=== PATIENT | female | born 1970 | race Caucasian/White ===

== ENCOUNTER 2018-03-28 14:01 | Emergency (ER) | END 2018-03-29 00:42 | disposition home or self-care (01) ==

== ENCOUNTER 2018-04-05 11:19 | Emergency (ER) | END 2018-04-05 13:37 | disposition home or self-care (01) ==

== ENCOUNTER 2018-04-10 17:31 | Emergency (ER) | END 2018-04-10 21:00 | disposition home or self-care (01) ==

== ENCOUNTER 2018-04-26 16:51 | Emergency (ER) | END 2018-04-26 19:53 | disposition home or self-care (01) ==

== ENCOUNTER 2018-05-15 06:08 | Emergency (ER) | END 2018-05-15 11:18 | disposition home or self-care (01) ==

== ENCOUNTER 2018-05-26 19:25 | Emergency (ER) | END 2018-05-27 00:15 | disposition home or self-care (01) ==

== ENCOUNTER 2018-06-01 13:09 | Emergency (ER) | END 2018-06-01 22:05 | disposition home or self-care (01) ==

== ENCOUNTER 2018-08-13 17:49 | Emergency (ER) | payer SELFPAY ==
[~2018-08-13] VITALS: Ht 165.1 cm; Wt 101.5 kg
[~2018-08-13 17:49] MED LIST: CEPH-443 PO; CIPR500T4 PO; CLON-379 PO; HYDR-4011 PO; NAPR-688 PO; NAPR-985 PO; NITR-58 PO; ONDA4TAB14 PO; TRAM50TA2 PO
[2018-08-13 17:55] VITALS: Ht 165.1 cm; Wt 101.5 kg
[2018-08-13] MEDS ORDERED: ONDANSETRON (ODT) 4 MG TAB ODT STA (20:54)
[2018-08-13] MEDS ORDERED: ONDA4TAB8 PO (20:56)
[2018-08-13 21:00] VITALS: BP 180/118; PULSE 88; RESP 18
[2018-08-13] MEDS ORDERED: HYDROCODONE/APAP (5/325) TAB PO ONE (21:00)
--- NOTE | 2018-08-13 21:09 | ERD ---
ER Documentation Chief Complaint Chief Complaint pelvic/ap and back pain , n/v. sent from clinic for further evaluation HPI Patient is a 47-year-old female with a history of chronic pain who presents with abdominal pain. She reports lower abdominal pain and nausea. She was sent by her psychiatrist for a urine test which showed blood and protein in the urine. There was a note requesting a full workup with laboratory studies and urine sample. The patient has a history of chronic abdominal pain however and says this feels like her previous abdominal pain. It is diffuse in nature and is on both sides of her abdomen. Upon review of old medical records she has had 8 visits to our emergency department since March 28, 2018. Review of the emergency department information exchange system shows visits to 7 different emergency departments over the past 1 year and she does have a care plan for her chronic pain. She is going to follow-up with a Dr. Gilmore as a primary doctor. ROS All systems reviewed and are negative except as per history of present illness. Medications Home Meds Active Scripts Ondansetron Hcl* (Zofran*) 4 Mg Tablet, 4 MG PO Q6H for NAUSEA AND/OR VOMITING, #30 TAB Prov:ALON BASILIO MD 08/13/18 Ondansetron (Ondansetron Odt) 4 Mg Tab.rapdis, 4 MG PO Q6H PRN for NAUSEA AND/OR VOMITING, #10 TAB Prov:JOSE CORNELL MD 06/01/18 Tramadol HCl (Tramadol HCl) 50 Mg Tablet, 50 MG PO Q6 PRN for PAIN, #15 TAB Prov:JOSE CORNELL MD 06/01/18 Nitrofurantoin Monohyd Macrocr* (Macrobid*) 100 Mg Capsr, 100 MG PO BID for 14 Days, CAP Prov:JOSE CORNELL MD 06/01/18 Tramadol HCl (Tramadol HCl) 50 Mg Tablet, 50 MG PO Q6 PRN for PAIN, #15 TAB Prov:JOSE CORNELL MD 06/01/18 Ondansetron (Ondansetron Odt) 4 Mg Tab.rapdis, 4 MG PO Q6H PRN for NAUSEA AND/OR VOMITING, #10 TAB Prov:JOSE CORNELL MD 06/01/18 Nitrofurantoin Monohyd Macrocr* (Macrobid*) 100 Mg Capsr, 100 MG PO BID for 14 Days, CAP Prov:JOSE CORNELL MD 06/01/18 Naproxen* (Naprosyn*) 500 Mg Tablet, 500 MG PO BID PRN for PAIN AND/OR IN FLAMMATION, #30 TAB Prov:ANGEL POTTER MD 05/26/18 Ciprofloxacin Hcl* (Ciprofloxacin Hcl*) 500 Mg Tablet, 500 MG PO BID for 7 Days, TAB Prov:ANGEL POTTER MD 05/26/18 Cephalexin* (Keflex*) 500 Mg Capsule, 500 MG PO QID for 5 Days, CAP Prov:ANGEL DYE MD 05/15/18 Ondansetron (Ondansetron Odt) 4 Mg Tab.rapdis, 4 MG PO Q6H PRN for NAUSEA AND/OR VOMITING, #10 TAB Prov:ANGEL DYE MD 05/15/18 Hydrocodone/Acetaminophen ([place] 5-325 Tablet) 1 Each Tablet, 1 TAB PO Q6H PRN for PAIN, #20 TAB Prov:ANGEL DYE MD 05/15/18 Naproxen* (Naproxen*) 500 Mg Tablet, 500 MG PO BID PRN for PAIN, #20 TAB Prov:JEFF PATIÑO DO 04/26/18 Hydrocodone/Acetaminophen ([place] 5-325 Tablet) 1 Each Tablet, 1 EACH PO Q6 PRN for SEVERE PAIN LEVEL 7-10, #20 TAB Prov:JEFF PATIÑO DO 04/26/18 Reported Medications Clonidine Hcl* (Clonidine Hcl*) 0.1 Mg Tab, 0.1 MG PO NEEDED, TAB 04/26/18 Allergies Allergies: Coded Allergies: pseudoephedrine (Verified Allergy, Unknown, 04/26/18) PMhx/Soc Positive for chronic abdominal pain History of Surgery: No Anesthesia Reaction: No Hx Neurological Disorder: No Hx Respiratory Disorders: No Hx Cardiac Disorders: No Hx Psychiatric Problems: No Hx Miscellaneous Medical Probl: No Hx Alcohol Use: No Hx Substance Use: No Hx Tobacco Use: No FmHx Family History: diabetes Physical Exam Vitals Vital Signs Date Temp Pulse Resp B/P (MAP) Pulse Ox O2 O2 Flow FiO2 Time Delivery Rate 08/13/18 97.2 100 18 180/118 100 17:55 (138) Physical Exam Const: Mild distress Head: Atraumatic Eyes: Normal Conjunctiva ENT: Normal External Ears, Nose and Mouth. Neck: Full range of motion. No meningismus. Resp: Clear to auscultation bilaterally Cardio: Regular rate and rhythm, no murmurs Abd: Diffuse tenderness to palpation without rebound or guarding Skin: No petechiae or rashes Back: No midline or flank tenderness Ext: No cyanosis, or edema Neur: Awake and alert Psych: Normal Mood and Affect Results 24 hrs Laboratory Tests Test 08/13/18 20:58 08/13/18 20:59 Bedside Urine pH (LAB) 7.0 Bedside Urine Protein (LAB) Negative Bedside Urine Glucose (UA) Negative Bedside Urine Ketones (LAB) Negative Bedside Urine Blood Trace-intact Bedside Urine Nitrite (LAB) Negative Bedside Urine Leukocyte Esterase (L Trace POC Beta HCG, Qualitative NEGATIVE Current Medications Medications Dose Sig/Tanya Start Time Status Last (Trade) Ordered Route PRN Stop Time Admin Dose Reason Admin 1 tab ONCE ONCE 08/13/18 DC Acetaminophen PO 21:00 08/13/18 / 21:01 Hydrocodone Bitart ([place] (5/325)) Ondansetron 4 mg ONCE STAT 08/13/18 DC HCl (Zofran ODT 20:54 08/13/18 Odt) 20:55 Procedures/MDM Urine dip is negative for infection or protein, there is trace blood. Urine test is negative. Patient is a 47-year-old female who presents with acute on chronic abdominal pain. I do not believe that she requires a workup at this time. I believe this is consistent with her chronic pain process. She will be given 1 [place] and 1 Zofran in the emergency department as this is her chronic pain plan. She is already had her appendix and gallbladder removed and I doubt appendicitis or cholecystitis. Vital signs are normal and I doubt sepsis. She can follow-up with her primary doctor within 1 week. She can return for any worsening symptoms. She will be given a prescription for Zofran but no narcotic medicines. Departure Diagnosis: Primary Impression: Chronic pain Chronic pain type: chronic pain syndrome Qualified Codes: G89.4 - Chronic pain syndrome Additional Impression: Abdominal pain Abdominal location: generalized Qualified Codes: R10.84 - Generalized abdominal pain Condition: Fair Patient Instructions: Chronic Pain Referrals: Dr. Gilmore Additional Instructions: Call your primary care doctor TOMORROW for an appointment during the next 1 WEEK.Tell the secretary specialist that you were referred from this facility.See the doctor sooner or return here if your condition worsens before your appointment time. ALON BASILIO MD Aug 13, 2018 21:09
== END 2018-08-13 21:50 | disposition home or self-care (01) ==
LOC: E/R 17:49
DX: G89.4 Chronic pain syndrome (principal); R10.84 Generalized abdominal pain
CPT/HCPCS: 81003; 81025; 99283